=== PATIENT | male | born 1950 | race Caucasian/White ===

== ENCOUNTER 2017-08-19 10:24 | Day surgery (SDC) | payer MEDICARE ==
[~2017-08-19] VITALS: Ht 195.6 cm; Wt 120.0 kg
[2017-08-19] MEDS ORDERED: SITA1TBM7 PO (10:57)
[2017-08-19] MEDS ORDERED: RIVA20TA PO (10:57)
[2017-08-19] MEDS ORDERED: METF500T4 PO (10:57)
[2017-08-19] MEDS ORDERED: BENA20TA2 PO (10:57)
[2017-08-19] MEDS ORDERED: LOVA10TA PO (10:57)
[2017-08-19] MEDS ORDERED: METO25TA91 PO (10:57)
[2017-08-19] MEDS ORDERED: DILT120C64 PO (10:57)
[2017-08-19 11:03] VITALS: BP 132/102
[2017-08-19 11:28] LABS: BASOPHILS # (AUTO) 0.07 x10^3/uL (0-0.1); BASOPHILS % (AUTO) 1 % (0-1); EOSINOPHILS % (AUTO) 0 % (1-7); LYMPHOCYTES # (AUTO) 1.86 x10^3/uL (1-3.4); LYMPHOCYTES % (AUTO) 21 % (22-44); MD NO; MEAN CORPUSCULAR HEMOGLOBIN 33.5 pg (27.5-34.5); MEAN CORPUSCULAR HGB CONC 34.4 g/dL (33.2-36.2); MEAN CORPUSCULAR VOLUME 97.2 fL (81-97); MEAN PLATELET VOLUME 8.9 fL (7.4-10.4); MONOCYTES # (AUTO) 0.82 x10^3/uL (0.2-0.8); MONOCYTES % (AUTO) 9 % (2-9); NEUTROPHILS # (AUTO) 6.35 x10^3/uL (1.8-6.8); NEUTROPHILS % (AUTO) 70 % (42-75); PLATELET COUNT 257 x10^3/uL (130-400); RED BLOOD COUNT 4.94 x10^6/uL (4.38-5.82); RED CELL DISTRIBUTION WIDTH 13.1 % (9.4-14.8)
[2017-08-19 11:39] LABS: ANION GAP 8 mmol/L (5-15); CALCIUM 8.8 mg/dL (8.5-10.1); CHLORIDE 105 mmol/L (98-107); CREATININE 1.11 mg/dL (0.7-1.3)
[2017-08-19] MEDS ORDERED: FENTANYL PF 100 MCG/2ML ONE (12:32)
[2017-08-19] MEDS ORDERED: MIDAZOLAM 1 MG/ML, 2ML ONE (12:32)
[2017-08-19] MEDS ORDERED: SODIUM CHLORIDE FLUSH 10ML SYR IVF SCH (21:00)
== END 2017-08-19 14:00 | disposition home or self-care (01) ==
LOC: CACL 10:24
PROVIDERS: ATTEND Internal Medicine Cardiovascular Disease
DX: I48.0 Paroxysmal atrial fibrillation (principal); I10 Essential (primary) hypertension; E78.2 Mixed hyperlipidemia; E11.9 Type 2 diabetes mellitus without complications; Z79.01 Long term (current) use of anticoagulants; Z82.49 Family history of ischemic heart disease and other diseases of the circulatory system; Z79.84 Long term (current) use of oral hypoglycemic drugs
CPT/HCPCS: 36415; 80048; 85025; 92960; 93005; J2250; J3010

== ENCOUNTER 2019-01-23 17:23 | Emergency (ER) | payer MEDICARE ==
[~2019-01-23] VITALS: Ht 195.6 cm; Wt 123.7 kg
[~2019-01-23 17:23] MED LIST: BENA20TA54 PO; DILT120C64 PO; LOVA10TA PO; METF500T17 PO; METO25TA91 PO; RIVA20TA PO; SITA1TBM7 PO
[2019-01-23] MEDS ORDERED: DILTIAZEM 5 MG/ML, 5ML IVPush STA (17:41)
[2019-01-23] MEDS ORDERED: DILTIAZEM 125 MG in SODIUM CHLORIDE 0.9% 100 ML IV SCH (17:41)
[2019-01-23] MEDS ORDERED: PROPOFOL 10 MG/ML, 20ML ONE ×2 (17:47→19:12)
--- NOTE | 2019-01-23 17:50 | NUR ---
PT AMBULATORY TO ROOM 15 W/ C/O FEELING LIKE HE IS IN A FIB AND HAS BEEN IN A FIB SINCE FRIDAY. STATES HR IN THE 160'S. PT HAS HX A FIB. HAS BEEN TAKING ELIQUIS ON TIME W/O MISSING DOAGES X 1.5 YRS. PT PLACED ON MONITOR. HR NOTED TO BE 142-172. PT RESTING ON GURNEY. PIV INITIATED.
[2019-01-23 18:00] LABS: BASOPHILS # (AUTO) 0.09 x10^3/uL (0-0.1); BASOPHILS % (AUTO) 1 % (0-1); EOSINOPHILS % (AUTO) 0 % (1-7); LYMPHOCYTES # (AUTO) 2.66 x10^3/uL (1-3.4); LYMPHOCYTES % (AUTO) 25 % (22-44); MD NO; MEAN CORPUSCULAR HEMOGLOBIN 34.2 pg (27.5-34.5); MEAN CORPUSCULAR HGB CONC 33.2 g/dL (33.2-36.2); MEAN PLATELET VOLUME 9.1 fL (7.4-10.4); MONOCYTES # (AUTO) 1.05 x10^3/uL (0.2-0.8); MONOCYTES % (AUTO) 10 % (2-9); NEUTROPHILS # (AUTO) 6.87 x10^3/uL (1.8-6.8); NEUTROPHILS % (AUTO) 64 % (42-75); PLATELET COUNT 268 x10^3/uL (130-400); RED BLOOD COUNT 5.77 x10^6/uL (4.38-5.82)
[2019-01-23] MEDS ORDERED: PROPOFOL 10 MG/ML, 20ML IVPush ONE (18:00)
[2019-01-23] MEDS ORDERED: SODIUM CHLORIDE FLUSH 10ML SYR IVF ONE (18:00)
--- NOTE | 2019-01-23 18:00 | NUR ---
ERP DR. DIAZ AT BEDSIDE.
[2019-01-23 18:04] LABS: INTERNATIONAL NORMALIZED RATIO 1.02 (0.93-1.1); PROTHROMBIN TIME 10.7 Seconds (9.6-11.5)
[2019-01-23 18:07] LABS: ALANINE AMINOTRANSFERASE 50 U/L (12-78); ALBUMIN 4.3 g/dL (3.4-5.0); ANION GAP 11 mmol/L (5-15); CALCIUM 9.8 mg/dL (8.5-10.1); CHLORIDE 103 mmol/L (98-107); CREATININE 1.59 mg/dL (0.7-1.3)
[2019-01-23 18:12] LABS: ALKALINE PHOSPHATASE 108 U/L (45-117); BILIRUBIN,TOTAL 0.7 mg/dL (0.2-1.0); TOTAL PROTEIN 8.3 g/dL (6.4-8.2); TROPONIN I < 0.015 ng/mL (0.000-0.045)
[2019-01-23 18:21] VITALS: BP 129/77
--- NOTE | 2019-01-23 18:32 | NUR ---
180 START OF CARDIOVERSION 181 80 MG PROPOFOL ADMINISTERED 181 120 J SYNCHRONIZED CARDIOVERSION 181 END OF CARDIOVERSION PT CONVERTED TO SR AFTER 1 SHOCK. PT NOW RESTING ON GURNEY. MCDONALD VSS. SEE VS SPREADSHEET ON PAPER CHART.
--- NOTE | 2019-01-23 18:57 | NUR ---
BS REPORT OF PT FROM YAMILA HOLDEN AND ASSUMING CARE OF PT AT THIS TIME.
[2019-01-23] MEDS ORDERED: METOPROLOL 1 MG/ML, 5ML IVPush ONE (19:30)
== END 2019-01-23 19:02 ==
LOC: ED 18:55
DX: I48.0 Paroxysmal atrial fibrillation (principal); N28.9 Disorder of kidney and ureter, unspecified
CPT/HCPCS: 36415; 71045; 80053; 83735; 84443; 84484; 85025; 85610; 92950; 93005; 99152; 99291

== ENCOUNTER → 2019-07-12 | Outpatient (CLI) | payer MEDICARE ==
[~2019-07-12] MED LIST changes: +ACET325T26 PO; +APIX5TAB PO; +ATOR20TA37 PO; +COLC0.6C3 PO; +EMPA10TA PO; +FURO20TA3 PO; +HYDROCHLOROTH12.5 MG PO; +METO-93 PO; +SOTA120T14 PO
[2019-07-12 12:54] LABS: BASOPHILS # (AUTO) 0.07 x10^3/uL (0-0.1); BASOPHILS % (AUTO) 1 % (0-1); EOSINOPHILS # (AUTO) 0.03 x10^3/uL (0-0.4); EOSINOPHILS % (AUTO) 1 % (1-7); LYMPHOCYTES % (AUTO) 20 % (22-44); MD NO; MEAN CORPUSCULAR VOLUME 102.9 fL (81-97); MEAN PLATELET VOLUME 9.1 fL (7.4-10.4); MONOCYTES # (AUTO) 0.63 x10^3/uL (0.2-0.8); MONOCYTES % (AUTO) 9 % (2-9); NEUTROPHILS # (AUTO) 4.93 x10^3/uL (1.8-6.8); NEUTROPHILS % (AUTO) 70 % (42-75); PLATELET COUNT 218 x10^3/uL (130-400); RED BLOOD COUNT 5.23 x10^6/uL (4.38-5.82); RED CELL DISTRIBUTION WIDTH 13.1 % (9.4-14.8)
[2019-07-12 13:14] LABS: CHLORIDE 105 mmol/L (98-107)
[2019-07-12 13:24] LABS: ANION GAP 9 mmol/L (5-15); CALCIUM 9.6 mg/dL (8.5-10.1); CREATININE 1.09 mg/dL (0.7-1.3)
== END | disposition home or self-care (01) ==
LOC: CFH 10:27
PROVIDERS: ATTEND Internal Medicine Cardiovascular Disease
DX: E78.2 Mixed hyperlipidemia (principal); E11.9 Type 2 diabetes mellitus without complications; I10 Essential (primary) hypertension; I48.0 Paroxysmal atrial fibrillation
CPT/HCPCS: 36415; 80048; 85025

== ENCOUNTER → 2019-07-14 | Outpatient (CLI) | payer MEDICARE ==
[~2019-07-14] MED LIST changes: +OMNIPAQUE 350 MG/ML, 150 ML BOTTLE ONE
== END | disposition home or self-care (01) ==
LOC: CFH 11:51
PROVIDERS: ATTEND Internal Medicine Cardiovascular Disease
DX: I48.0 Paroxysmal atrial fibrillation (principal)
CPT/HCPCS: 71046; 75572; Q9967

== ENCOUNTER 2019-07-15 22:16 | Emergency (ER) | payer MEDICARE ==
[~2019-07-15] VITALS: Ht 195.6 cm; Wt 126.7 kg
[~2019-07-15 22:16] MED LIST changes: -ACET325T26 PO; -APIX5TAB PO; -ATOR20TA37 PO; -COLC0.6C3 PO; -EMPA10TA PO; -FURO20TA3 PO; -HYDROCHLOROTH12.5 MG PO; -METO-93 PO; -OMNIPAQUE 350 MG/ML, 150 ML BOTTLE ONE; -SOTA120T14 PO
[2019-07-15] MEDS ORDERED: SODIUM CHLORIDE FLUSH 10ML SYR IVF ONE (23:00)
[2019-07-15] MEDS ORDERED: PROPOFOL 10 MG/ML, 20ML IVPush ONE (23:00)
[2019-07-15] MEDS ORDERED: PROPOFOL 10 MG/ML, 20ML ONE (23:46)
--- NOTE | 2019-07-15 23:50 | NUR ---
PROCEDURAL SEDATION FOR CARDIOVERSION STARTED. PT GIVEN TOTAL OF 150MG PROPOFOL, AT 2354 PT CARDIOVERTED WITH 200J INTO NORMAL SINUS. EKG TO CONFIRM. VSS STABLE.
[2019-07-15 23:59] VITALS: BP 121/81
[2019-07-16] MEDS ORDERED: ATOR20TA37 PO (07:04)
[2019-07-16] MEDS ORDERED: APIX5TAB PO (07:04)
[2019-07-16] MEDS ORDERED: EMPA10TA PO (07:04)
[2019-07-16] MEDS ORDERED: HYDROCHLOROTH12.5 MG PO (07:06)
[2019-07-16] MEDS ORDERED: METO-93 PO (07:06)
[2019-07-16] MEDS ORDERED: FURO20TA3 PO (07:06)
[2019-07-18] MEDS ORDERED: DILT120C64 PO (09:14)
[2019-07-18] MEDS ORDERED: ACET325T26 PO (09:14)
[2019-07-18] MEDS ORDERED: COLC0.6C3 PO (09:14)
[2019-07-18] MEDS ORDERED: SOTA120T14 PO (09:14)
== END 2019-07-16 00:59 | disposition home or self-care (01) ==
LOC: ED 22:57
DX: I48.91 Unspecified atrial fibrillation (principal); I49.3 Ventricular premature depolarization
CPT/HCPCS: 92960; 93005; 99291